=== PATIENT | female | born 1980 | race Caucasian/White ===

== ENCOUNTER 2016-05-05 04:32 | Emergency (ER) | payer SELFPAY ==
[~2016-05-05] VITALS: Ht 157.5 cm; Wt 67.5 kg
[2016-05-05 05:00] VITALS: Ht 157.5 cm; Wt 67.5 kg
[2016-05-05 07:50] LABS: ADD SCAN DIFF NO
[2016-05-05 07:53] LABS: BASOPHIL # 0.1 10^3/ul (0.0-0.1); BASOPHILS % 0.5 % (0.0-2.0); EOSINOPHILS # 0.1 10^3/ul (0.0-0.5); EOSINOPHILS % 0.5 % (0.0-7.0); HEMATOCRIT 43.1 % (37.0-47.0); HEMOGLOBIN 13.8 g/dl (12.0-16.0); LYMPHOCYTES # 1.6 10^3/ul (0.8-2.9); LYMPHOCYTES % 17.2 % (15.0-51.0); MEAN CORPUSCULAR HEMOGLOBIN 30.2 pg (29.0-33.0); MEAN CORPUSCULAR VOLUME 94.3 fl (82.0-101.0); MEAN PLATELET VOLUME 9.9 fl (7.4-10.4); MONOCYTE # 0.5 10^3/ul (0.3-0.9); MONOCYTES % 4.9 % (0.0-11.0); NEUTROPHILS % 76.5 % (39.0-77.0); PLATELET COUNT 266 10^3/UL (140-415); RED BLOOD COUNT 4.57 10^6/ul (4.20-5.40); RED CELL DISTRIBUTION WIDTH 13.5 % (11.5-14.5); WHITE BLOOD COUNT 9.2 10^3/ul (4.8-10.8)
[2016-05-05 08:13] LABS: ADD UMIC YES; URINE BILIRUBIN (Dip) NEGATIVE (NEGATIVE); URINE BLOOD (Dip) 3+ (NEGATIVE); URINE COLOR RED (YELLOW); URINE GLUCOSE (Dip) NEGATIVE (NEGATIVE); URINE KETONES (Dip) NEGATIVE (NEGATIVE); URINE LEUKOCYTE ESTERASE (Dip) TRACE (NEGATIVE); URINE NITRITE (Dip) NEGATIVE (NEGATIVE); URINE TOTAL PROTEIN (Dip) 2+ (NEGATIVE); URINE UROBILINOGEN (Dip) 1.0 E.U./dL (0.1-1.0)
--- NOTE | 2016-05-05 08:17 | RADRPT ---
PROCEDURE: US Pelvis. CLINICAL INDICATION: , vaginal bleeding. TECHNIQUE: Multiple sonographic images of the pelvis were obtained utilizing a transabdominal and endovaginal technique. The images were reviewed on a PACS workstation. COMPARISON: None available. FINDINGS: The uterus is retroverted and measures 7.5 x 5.2 x 5.4 cm. The endometrial echo complex is mildly pr ominent and measures 14.0 mm. There no evidence of an intrauterine gestational sac. There are sever al fibroids seen. The largest is in the anterior fundal region and is partially submucosal in locat ion measuring 1.6 x 1.4 cm in diameter. There is no evidence for free fluid. The right ovary has a n ormal echotexture and measures 3.2 x 1.7 x 2.1 cm. The left ovary has a normal echotexture and tacos ures 2.3 x 1.3 x 2.1 cm. No adnexal masses are noted. IMPRESSION: 1. No evidence of an intrauterine gestation. In the presence of a positive test, the poss ibility of an early IUP, missed AB or ectopic must be considered. Continued surveillance with seria l quantitative beta HCGs and follow-up ultrasound is suggested. 2. Several small uterine fibroids. The largest is in the anterior fundal region and is submucosal in location measuring 1.6 x 1.4 cm. RPTAT: [facility] Physician Ang Date Time Electronically viewed and signed by Physician Ang on 05/05/2016 08:16 /
[2016-05-05 08:45] LABS: BACTERIA,URINE FEW; URINE RBCS >200 /HPF (0)
[2016-05-05] MEDS ORDERED: CEPH-443 PO (09:23)
--- NOTE | 2016-05-05 10:25 | ERD ---
ER Documentation Chief Complaint Date/Time DATE: 05/05/16 TIME: 10:22 Chief Complaint Pelvic pain and 5 weeks . Vaginal bleed HPI This is a 36-year-old female a 2 presenting to the emergency department she stating she is 5 weeks complaining of mild pelvic pain with vaginal spotting in the past 2 days. 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 Marshall. Patient denies any fevers, nausea, vomiting, diarrhea. ROS All systems reviewed and are negative except as per history of present illness. Medications Home Meds Active Scripts Cephalexin* (Keflex*) 500 Mg Capsule, 500 MG PO BID for 7 Days, CAP Prov:MENG BARKLEY PA-C 05/05/16 Allergies Allergies: Coded Allergies: No Known Allergy (Unverified , 05/05/16) PMhx/Soc Medical and Surgical Hx: pt denies Medical Hx, pt denies Surgical Hx Hx Alcohol Use: No Hx Substance Use: No Hx Tobacco Use: No Physical Exam Vitals Vital Signs Date Time Temp Pulse Resp B/P Pulse Ox O2 Delivery O2 Flow Rate FiO2 05/05/16 05:00 97.5 76 18 121/71 100 Physical Exam General: well-developed/well-nourished, in no apparent distress, non-toxic appearing HENT: NC/AT Eyes: Conjunctiva normal Neck: Supple Pulm: CTA bilaterally, normal breathing CV: Normal S1S2 GI: Soft, non-distended, normal bowel sounds, TTP on suprapubic region Back: No midline tenderness, no masses, No CVAT Ext: No clubbing, cyanosis, or edema Neuro: Alert and orientated Skin: intact, normal turgor Psych: Normal mood and mentation Result Diagram: 05/05/16 0722 Results 24 hrs Laboratory Tests Test 05/05/16 07:22 Basophils # 0.110^3/ul Basophils % 0.5% Beta HCG, Quantitative 112.7mIU/ml Eosinophils # 0.110^3/ul Eosinophils % 0.5% Hematocrit 43.1% Hemoglobin 13.8g/dl Lymphocytes # 1.610^3/ul Lymphocytes % 17.2% Mean Corpuscular Hemoglobin 30.2pg Mean Corpuscular Hemoglobin Concent 32.0g/dl Mean Corpuscular Volume 94.3fl Mean Platelet Volume 9.9fl Monocytes # 0.510^3/ul Monocytes % 4.9% Neutrophils # 7.010^3/ul Neutrophils % 76.5% Nucleated Red Blood Cells # 0.010^3/ul Nucleated Red Blood Cells % 0.0/100WBC Platelet Count 56527^3/UL Red Blood Count 4.5710^6/ul Red Cell Distribution Width 13.5% Urine Bacteria FEW Urine Bilirubin NEGATIVE Urine Clarity BLOODY Urine Color RED Urine Epithelial Cells FEW Urine Glucose NEGATIVE% Urine Hemoglobin 3+ Urine Ketones NEGATIVE Urine Leukocyte Esterase TRACE Urine Microscopic RBC >200/HPF Urine Microscopic WBC 2-5/HPF Urine Nitrite NEGATIVE Urine Specific [place] 1.020 Urine Total Protein 2+ Urine Urobilinogen 1.0 E.U./dL Urine pH 8.5 White Blood Count 9.210^3/ul Procedures/MDM This is a 36-year-old female A2 presenting to the emergency department complaining of mild pelvic pain with vaginal spotting for the past 2 days likely due to complete vs threatened vs UTI. Low suspicion for complete , ectopic , molar , ovarian torsion, appendicitis, cholecystitis, pancreatitis, obstruction, pyelonephritis due to diagnostic testing and physical examination. UA, urine culture, blood work, ultrasound was done in the ED. Patient needs to follow-up with an [facility] for further evaluation and management. CBC did not show evidence of leukocytosis or anemia. Beta hCG was 112 which is low due to patient states however I discussed that she will need to be follow-up to repeat her ultrasound and beta-hCG. OB ultrasound: 1. No evidence of an intrauterine gestation. In the presence of a positive test, the possibility of an early IUP, missed AB or ectopic must be considered. Continued surveillance with serial quantitative beta HCGs and follow-up ultrasound is suggested. 2. Several small uterine fibroids. The largest is in the anterior fundal region and is submucosal in location measuring 1.6 x 1.4 cm. Disposition: hemodynamically stable. Diagnostic testing has been given to patient, discussed to follow-up with an OB-[employer]ER. Discussed to return to the ED for any worsening signs or symptoms. Patient understood and agreed with this plan. Departure Diagnosis: Primary Impression: Vaginal bleeding Additional Impression: Fibroids Condition: Stable Patient Instructions: Vaginal Bleed in , Possible Miscarriage ( Threatened ) Additional Instructions: Visite [facility] para un EXAMEN.Regrese a estas instalaciones si no se mejora azael esperbamos o azael le dijimos. Regrese a estas instalaciones dentro de [facility] para un examen de seguimiento.Regrese antes si bains condicin se empeora. Regrese a estas instalaciones si no se mejora azael esperbamos o azael le dijimos. MENG BARKLEY PA-C May 05, 2016 10:25
== END 2016-05-05 09:39 | disposition home or self-care (01) ==
LOC: FTE 04:32
DX: O20.9 Hemorrhage in early pregnancy, unspecified (principal); O34.11 Maternal care for benign tumor of corpus uteri, first trimester; R10.2 Pelvic and perineal pain; Z3A.01 Less than 8 weeks gestation of pregnancy
CPT/HCPCS: 36415; 76801; 76817; 81001; 81003; 84702; 85025; 86900; 86901